=== PATIENT | male | born 1970 | race Caucasian/White ===

== ENCOUNTER 2021-06-21 19:35 | Emergency (ER) | payer MEDICAID ==
[~2021-06-21] VITALS: Ht 182.9 cm; Wt 83.0 kg
--- NOTE | 2021-06-21 19:58 | NUR ---
PT AMBULATED TO ER WITH C/O UPPER BACK SKIN LESSION/ABCESS X 1 YR, INCREASE PAIN X1 WEEK. A/O X4, NO SOB OR LABORED BREATHING, AFEBRILE. CLEAR SPEECH, COMPLETE SENTENCES.
--- NOTE | 2021-06-21 20:05 | NUR ---
DR. GIVENS AT BEDSIDE, MSE IN PROGRESS.
[2021-06-21] MEDS ORDERED: LIDOCAINE 1%-EPI 1:100,000 20 ML VIAL IJ ONE (20:15)
[2021-06-21] MEDS ORDERED: SULF1TAB48 PO (21:12)
[2021-06-21] MEDS ORDERED: OXYC-128 PO (21:12)
[2021-06-21] MEDS ORDERED: SULFAMETH/TRIMETH 800/160 MG TABLET PO ONE (21:15)
--- NOTE | 2021-06-21 21:15 | NUR ---
Patient discharged to home in stable condition. Denies any pain/discomfort upon discharge. Written and verbal after care instructions given. Patient verbalizes understanding of instructions. Stressed follow up or return to ER for worsening s/s. Steady gait.
[2021-06-21] MEDS ORDERED: SULFAMETH/TRIMETH 800/160 MG TABLET ONE (21:19)
[2021-06-21 21:31] VITALS: BP 134/77
== END 2021-06-21 21:20 | disposition home or self-care (01) ==
LOC: ER 19:40
DX: L72.3 Sebaceous cyst (principal); L02.212 Cutaneous abscess of back [any part, except buttock and flank]
CPT/HCPCS: 11406; 87070; 99284; J3490; A4663

== ENCOUNTER 2021-06-23 15:51 | Emergency (ER) | payer MEDICAID ==
[~2021-06-23] VITALS: Ht 182.9 cm; Wt 81.6 kg
[~2021-06-23 15:51] MED LIST: OXYC-128 PO; SULF1TAB48 PO
--- NOTE | 2021-06-23 16:00 | NUR ---
PLACED THE STERISTRIP ON THE WOUND ON BACK.
[2021-06-23] MEDS ORDERED: NEOMY/BACITRA/POLYMYXIN B OINT UD PACKET TP ONE ×2 (16:10→16:15)
--- NOTE | 2021-06-23 16:15 | NUR ---
Patient discharged to home in stable condition. Written and verbal after care instructions given. Patient verbalizes understanding of instructions. Stressed follow up or return to ER for worsening s/s.
== END 2021-06-23 16:17 | disposition home or self-care (01) ==
LOC: ER 15:51
DX: Z48.817 Encounter for surgical aftercare following surgery on the skin and subcutaneous tissue (principal); L02.219 Cutaneous abscess of trunk, unspecified; R03.0 Elevated blood-pressure reading, without diagnosis of hypertension
CPT/HCPCS: A4663